=== PATIENT | female | born 1965 | race Asian ===

== ENCOUNTER 2017-04-16 10:56 | Day surgery (SDC) | payer BC ==
[~2017-04-16] VITALS: Ht 165.1 cm; Wt 52.6 kg
[2017-04-16 11:35] VITALS: Ht 165.1 cm; Wt 52.6 kg
[2017-04-16] MEDS ORDERED: PROPOFOL 20 ML ONE (13:47)
[2017-04-16] MEDS ORDERED: MIDAZOLAM 1 MG/ML 2 ML INJ ONE (13:47)
[2017-04-16] MEDS ORDERED: LIDOCAINE 2% (SDV) 5 ML INJ ONE (13:47)
[2017-04-16 13:51] VITALS: BP 115/79; PULSE 63; RESP 17
--- NOTE | 2017-04-16 14:29 | OPPN ---
Date/Time of Note Date/Time of Note DATE: 04/16/17 TIME: 14:26 Proc Note GI Procedure Date 04/16/17 Indication: other (Dysphagia) Pre-procedure Diagnosis Dysphagia Post-procedure Diagnosis Impression: Rule out eosinophilic esophagitis. Biopsies obtained Moderate erosive gastritis. Rule out H. pylori infection. Biopsies obtained Plan: Review pathology as soon as available Omeprazole 40 mg daily . Procedure Performed: Endoscopy (Plus biopsy) Surgeon MARGARITA ESPINAL MD See signature line Construction Specialist none Anesthesia Type: MAC Anesthesiologist: FRANKLYN MARROQUIN DO Tourniquet Time none EBL none Transfusion required none Biopsy 1: Gastric antrum/rule out H. pylori infection Biopsy 2: Midesophagus/rule out eosinophilic esophagitis Grafts/Implants none Tubes/Drains none Complication(s) none Disposition: home Procedure Description Preoperative Diagnosis: After informed consent, with the patient/relatives understanding the procedure, its indications, potential risks and complications, including but not limited to : allergic reaction, bleeding, perforation or infection, and after all pertinent questions were answered to the patients satisfaction, the patient/ relatives signed witnessed informed consent. Following this, premedication was administered slowly IV push under careful cardiovascular and respiratory monitoring with pulse oximetry, automatic blood pressure, and media monitor. Once the sedative effect was achieved the patient was place in the left lateral decubitus, the panendoscope was introduced and advanced under visual control. Careful examination of the upper gastrointestinal tract, both on insertion as well as withdrawal of the instrument disclosing the following findings: ESOPHAGUS: the mucosa of the entire esophagus was carefully examined and showed the following findings: []the mucosa appears within normal limits. There is no evidence of esophagitis, varices, neoplasm, or stricture. No Hiatal Hernia identified. Random biopsies were obtained in the midesophagus to rule out eosinophilic esophagitis STOMACH: Upon entrance to the stomach air was insufflated, the gastric leija distended normally. The mucosa of the fundus, body and antrum of the stomach was carefully examined both head-on and on retroflexion, and showed the following findings: There is moderate erythema edema and superficial erosion of the mucosa of the antrum. Biopsies were obtained to rule out H. pylori infection. Otherwise the mucosa appears within normal limits with no abnormalities. There is no evidence of ulcers or neoplasm. PYLORUS: The pylorus was carefully examined and showed the following findings: []the pylorus appears patent and within normal limits, with no evidence of gastric outlet obstruction. DUODENUM: The duodenal mucosa was carefully examined in the duodenal bulb as well as the second portion of the duodenum and showed the following findings: []the mucosa appears unremarkable with no evidence of duodenitis, ulcer or neoplasm. Copies To: CC: MARGARITA ESPINAL MD, MORDO MD Apr 16, 2017 14:29
[2017-04-16 14:43] VITALS: BP 113/84; RESP 14
== END 2017-04-16 15:03 | disposition home or self-care (01) ==
LOC: GIL 10:56
PROVIDERS: ATTEND Internal Medicine Gastroenterology
DX: K29.50 Unspecified chronic gastritis without bleeding (principal)
CPT/HCPCS: 43239; 84703; J2250; Z7610

== ENCOUNTER 2018-12-17 12:02 | Day surgery (SDC) | payer BC ==
[~2018-12-17] VITALS: Ht 152.4 cm; Wt 50.1 kg
[2018-12-17 13:15] VITALS: Ht 152.4 cm; Wt 50.1 kg
[2018-12-17 14:44] VITALS: BP 115/69; PULSE 50; RESP 18
[2018-12-17] MEDS ORDERED: EPHEDrine 25 MG/5 ML SYG ONE (15:00)
[2018-12-17] MEDS ORDERED: PROPOFOL 20 ML ONE ×2 (15:05→15:30)
[2018-12-17 15:57] VITALS: BP 110/70; RESP 20
== END 2018-12-17 19:22 | disposition home or self-care (01) ==
LOC: GIL 12:02
PROVIDERS: ATTEND Internal Medicine Gastroenterology
DX: Z12.11 Encounter for screening for malignant neoplasm of colon (principal); D12.6 Benign neoplasm of colon, unspecified; K64.8 Other hemorrhoids
CPT/HCPCS: 45380; 88305; Z7610